=== PATIENT | female | born 1960 | race Two or more races ===

== ENCOUNTER 2018-06-22 09:07 | Outpatient (CLI) | payer OTHER | END 2018-06-22 09:12 | disposition home or self-care (01) | LOC: RX STUDY 09:07 | DX: R13.11 Dysphagia, oral phase (principal); J45.30 Mild persistent asthma, uncomplicated ==

== ENCOUNTER 2019-10-26 10:41 | Outpatient (CLI) | payer OTHER | END 2019-10-26 10:45 | disposition home or self-care (01) | LOC: TOM 10:41 | DX: J45.31 Mild persistent asthma with (acute) exacerbation (principal); R91.1 Solitary pulmonary nodule; K21.9 Gastro-esophageal reflux disease without esophagitis; K22.0 Achalasia of cardia ==

== ENCOUNTER 2022-04-28 07:13 | Outpatient (CLI) | payer OTHER | END 2022-04-28 07:25 | disposition home or self-care (01) | LOC: TOM 07:13 | PROVIDERS: ATTEND Internal Medicine Pulmonary Disease | DX: R91.1 Solitary pulmonary nodule (principal); J45.30 Mild persistent asthma, uncomplicated; E66.01 Morbid (severe) obesity due to excess calories ==

== ENCOUNTER 2022-12-02 08:50 | Outpatient (CLI) | payer OTHER | END 2022-12-02 08:52 | disposition home or self-care (01) | LOC: RAD 08:50 | PROVIDERS: ATTEND Internal Medicine Pulmonary Disease | DX: J45.30 Mild persistent asthma, uncomplicated (principal); R06.02 Shortness of breath; E66.01 Morbid (severe) obesity due to excess calories ==

== ENCOUNTER 2023-10-19 07:01 | Outpatient (CLI) | payer OTHER | END 2023-10-19 15:34 | disposition home or self-care (01) | LOC: TOM 07:01 | PROVIDERS: ATTEND Internal Medicine Pulmonary Disease | DX: J45.30 Mild persistent asthma, uncomplicated (principal); R91.1 Solitary pulmonary nodule; E66.01 Morbid (severe) obesity due to excess calories ==

== ENCOUNTER 2024-06-29 07:00 | Inpatient (IN) | payer OTHER ==
[~2024-06-29] VITALS: Ht 152.4 cm; Wt 71.7 kg
[2024-06-29] MEDS ORDERED: ZOCOR40 MG PO (08:05)
[2024-06-29] MEDS ORDERED: COZAAR25 MG PO (08:05)
[2024-06-29] MEDS ORDERED: PROTONIX40 M1 PO (08:06)
[2024-06-29] MEDS ORDERED: PROAIR RESPICL90 MCG IH (08:06)
[2024-06-29 08:34] LABS: HEMATOCRIT 44.2 % (36.0-45.00); HEMOGLOBIN 15.3 g/dL (12.0-15.00); MEAN CELL VOLUME 92.6 fL (80.00-100.00); MEAN CORPUSCULAR HEMOGLOBIN 32.1 pg (27.00-32.0); MEAN CORPUSCULAR HGB CONC 34.7 g/dl (32.0-36.0); PLATELET COUNT 275 K/uL (150-450); RED BLOOD COUNT 4.78 M/uL (4.00-6.00); RED CELL DISTRIBUTION WIDTH 14.2 % (11.5-14.5)
[2024-06-29 08:40] LABS: PH,URINE 5.5 (5.0-8.0); URINE APPEARANCE Clear; URINE BILIRRUBIN Negative (NEGATIVE); URINE BLOOD Negative; URINE COLOR Yellow; URINE GLUCOSE Negative (NEGATIVE); URINE KETONE Negative (NEGATIVE); URINE LEUKOCYTE Negative; URINE NITRATE Negative; URINE PROTEIN Negative (NEGATIVE); URINE UROBILINOGEN 0.2 E.U./dl
[2024-06-29 08:49] LABS: URINE BACTERIA 11.3 uL (0.0-1933); URINE EPITHELIAL CELLS 2.4 uL (0.0-38.8); URINE RBC 2.1 uL (0.0-20.8); URINE WBC 2.9 uL (0.0-23.2)
[2024-06-29 09:08] LABS: INR 0.97; PARTIAL THROMBOPLASTIN TIME 31.3 SECONDS (22.0-34.0); PROTHROMBIN TIME 10.6 SECONDS (9.0-11.5)
[2024-06-29 09:10] LABS: URINE CAST 0.15 uL (0.0-1.40)
[2024-06-29 09:22] LABS: BILIRUBIN TOTAL 0.39 mg/dL (0.3-1.2); CALCIUM 9.1 mg/dL (8.5-10.1); CREATININE SERUM 0.59 mg/dL (0.55-1.02); GFR 102.29; GLOBULINA 3.8 G/DL (2.4-3.5); POTASSIUM 4.63 mEq/L (3.5-5.1); TOTAL PROTEIN 7.8 gm/dL (6.4-8.2)
[2024-06-29 11:57] LABS: RH NEGATIVE
[2024-07-04] MEDS ORDERED: FAMOTIDINE20 MG (07:44)
[2024-07-04] MEDS ORDERED: ARNUITY ELLIP100 MCG (07:44)
[2024-07-04] MEDS ORDERED: BUPIVACAINE HCL 30 ML VIAL IJ ONE (08:30)
[2024-07-04] MEDS ORDERED: LIDOCAINE HCL 1%/EPINEPHRINE 20ML VIAL IJ ONE (08:30)
[2024-07-04] MEDS ORDERED: CEFAZOLIN SODIUM 1,000 MG VIAL IV ONE (08:30)
[2024-07-04] MEDS ORDERED: TRANEXAMIC ACID 100MG/1ML (1000MG) AMPUL IV ONE ×2 (08:30)
[2024-07-04] MEDS ORDERED: KETOROLAC TROMETHAMINE 60 MG VIAL IM ONE (08:30)
[2024-07-04] MEDS ORDERED: MORPHINE SULFATE 4 MG/ML CARTRIDGE IV ONE (08:45)
[2024-07-04] MEDS ORDERED: POLYMYXIN B SULFATE 500,000 U VIAL IR ONE (08:45)
[2024-07-04] MEDS ORDERED: MORPHINE SULFATE 4 MG/ML CARTRIDGE IV PRN (10:00)
[2024-07-04] MEDS ORDERED: MORPHINE SULFATE 2 MG/ML CARTRIDGE IV NR (10:00)
[2024-07-04] MEDS ORDERED: ONDANSETRON HCL 2 MG/ML VIAL IV PRN (10:00)
[2024-07-04] MEDS ORDERED: SODIUM CHLORIDE 0.45 % 1,000 ML IV SCH (10:00)
[2024-07-04] MEDS ORDERED: CEFAZOLIN SODIUM 1,000 MG VIAL IV SCH (12:00)
[2024-07-04 12:05] LABS: HEMATOCRIT 41.9 % (36.0-45.00); HEMOGLOBIN 14.5 g/dL (12.0-15.00); RED BLOOD COUNT 4.43 M/uL (4.00-6.00)
[2024-07-04 14:53] VITALS: BP 127/84; O2SAT 91
[2024-07-04] MEDS ORDERED: INSULIN LISPRO 1,000 UNIT/10 ML UNITS SUBCUTANEO PRN (15:00)
[2024-07-04] MEDS ORDERED: DEXTROSE 50 % IN WATER 0.5 G/ML DISP.SYRIN IV PRN (15:00)
[2024-07-04] MEDS ORDERED: SIMVASTATIN 40 MG TABLET PO SCH (17:00)
[2024-07-04 18:08] VITALS: BP 141/67; O2SAT 99
[2024-07-04] MEDS ORDERED: CELECOXIB 200 MG CAPSULE PO SCH (21:00)
[2024-07-04] MEDS ORDERED: GENTAMICIN SULFATE 40 MG/ML VIAL IV SCH (21:00)
[2024-07-04 23:03] VITALS: BP 136/74; O2SAT 98
[2024-07-05] VITALS: BP 136/71; O2SAT 99
[2024-07-05 06:15] LABS: HEMATOCRIT 35.5 % (36.0-45.00); HEMOGLOBIN 12.4 g/dL (12.0-15.00); MEAN CELL VOLUME 91.6 fL (80.00-100.00); MEAN CORPUSCULAR HEMOGLOBIN 31.9 pg (27.00-32.0); MEAN CORPUSCULAR HGB CONC 34.8 g/dl (32.0-36.0); PLATELET COUNT 184 K/uL (150-450); RED BLOOD COUNT 3.88 M/uL (4.00-6.00); RED CELL DISTRIBUTION WIDTH 14.2 % (11.5-14.5)
[2024-07-05] MEDS ORDERED: ACETAMINOPHEN WITH CODEINE 1 UDTAB TABLET PO PRN (07:45)
[2024-07-05 08:00] VITALS: BP 139/68; O2SAT 99
[2024-07-05] MEDS ORDERED: LOSARTAN POTASSIUM 25 MG TABLET PO SCH (09:00)
[2024-07-05] MEDS ORDERED: IRON FUM,PS/FOLIC/BCOMP,C NO.9 1 CAP CAPSULE PO SCH (09:00)
[2024-07-05] MEDS ORDERED: SENNA/DOCUSATE SODIUM 1 TAB TABLET PO SCH (09:00)
[2024-07-05] MEDS ORDERED: BACITRACIN 28.35 GM OINT.TUBE TOP SCH (09:00)
[2024-07-05] MEDS ORDERED: ALBUTEROL SULFATE 8.5 GM HFA.AER.AD IH SCH (09:00)
[2024-07-05] MEDS ORDERED: PANTOPRAZOLE SODIUM 40 MG TABLET.DR PO SCH (09:00)
[2024-07-05] MEDS ORDERED: RIVAROXABAN 10 MG TAB PO SCH (09:00)
[2024-07-05 11:47] LABS: ALBUMIN 3.2 gm/dL (3.4-5.0); BILIRUBIN TOTAL 0.78 mg/dL (0.3-1.2); CALCIUM 8.3 mg/dL (8.5-10.1); CREATININE SERUM 0.63 mg/dL (0.55-1.02); GFR 94.84; GLOBULINA 2.9 G/DL (2.4-3.5); POTASSIUM 3.89 mEq/L (3.5-5.1); TOTAL PROTEIN 6.1 gm/dL (6.4-8.2)
[2024-07-05 16:00] VITALS: BP 155/76; O2SAT 97
[2024-07-06 00:35] VITALS: BP 137/70; O2SAT 97
[2024-07-06] MEDS ORDERED: Septra Ds Tablet PO (06:30)
[2024-07-06] MEDS ORDERED: XARELTO10 MG PO (06:31)
[2024-07-06] MEDS ORDERED: ACETAMINOPHEN-1 EAC2 PO (06:31)
[2024-07-06] MEDS ORDERED: INTEGRA PLUS C1 EACH PO (06:31)
[2024-07-06 06:39] LABS: HEMOGLOBIN 10.7 g/dL (12.0-15.00); MEAN CORPUSCULAR HEMOGLOBIN 31.7 pg (27.00-32.0); MEAN CORPUSCULAR HGB CONC 34.4 g/dl (32.0-36.0); PLATELET COUNT 168 K/uL (150-450); RED BLOOD COUNT 3.37 M/uL (4.00-6.00); RED CELL DISTRIBUTION WIDTH 14.2 % (11.5-14.5)
[2024-07-06 08:30] VITALS: BP 126/78; O2SAT 99
[2024-07-06] MEDS ORDERED: SULFAMETHOXAZOLE/TRIMETHOPRIM DS 1 TAB PO SCH (09:00)
== END 2024-07-06 15:02 | DRG 470 ==
LOC: O/R 07-04 05:31 → SURH 07-04 07:00 → O/R 07-04 09:43 → SURG 07-04 11:56 → SURH 07-04 20:00 → O/R 07-05 12:53 → SURG 07-05 12:54
PROVIDERS: ADMIT Orthopaedic Surgery Sports Medicine; ATTEND Orthopaedic Surgery Sports Medicine
PROC: 0SRC0J9 Replacement of Right Knee Joint with Synthetic Substitute, Cemented, Open Approach (ICD-10-PCS; principal; 2024-07-04 20:00)
DX: M17.11 Unilateral primary osteoarthritis, right knee (principal); I10 Essential (primary) hypertension; E11.9 Type 2 diabetes mellitus without complications

== ENCOUNTER 2024-07-28 17:31 | Emergency (ER) | payer OTHER ==
[~2024-07-28] VITALS: Ht 157.5 cm; Wt 81.6 kg
[~2024-07-28 17:31] MED LIST: ACETAMINOPHEN-1 EAC2 PO; ARNUITY ELLIP100 MCG; COZAAR25 MG PO; FAMOTIDINE20 MG; INTEGRA PLUS C1 EACH PO; PROAIR RESPICL90 MCG IH; PROTONIX40 M1 PO; Septra Ds Tablet PO; XARELTO10 MG PO; ZOCOR40 MG PO
[2024-07-28 17:38] VITALS: BP 138/67; O2SAT 99
[2024-07-28] MEDS ORDERED: 0.9 % SODIUM CHLORIDE 1,000 ML IV STA (18:40)
[2024-07-28] MEDS ORDERED: ENOXAPARIN SODIUM 80 MG/0.8 ML SYRINGE SUBCUTANEO ONE (18:45)
[2024-07-28] MEDS ORDERED: TRAMADOL HCL 50 MG TABLET PO ONE (18:45)
[2024-07-28 19:41] LABS: HEMATOCRIT 37.1 % (36.0-45.00); HEMOGLOBIN 12.7 g/dL (12.0-15.00); MEAN CELL VOLUME 94.8 fL (80.00-100.00); MEAN CORPUSCULAR HEMOGLOBIN 32.4 pg (27.00-32.0); MEAN CORPUSCULAR HGB CONC 34.2 g/dl (32.0-36.0); PLATELET COUNT 364 K/uL (150-450); RED BLOOD COUNT 3.92 M/uL (4.00-6.00); RED CELL DISTRIBUTION WIDTH 16.2 % (11.5-14.5)
[2024-07-28 20:07] LABS: INR 1.06; PARTIAL THROMBOPLASTIN TIME 30.1 SECONDS (22.0-34.0); PROTHROMBIN TIME 11.5 SECONDS (9.0-11.5)
[2024-07-28 20:14] LABS: ALBUMIN 3.6 gm/dL (3.4-5.0); BILIRUBIN TOTAL 0.44 mg/dL (0.3-1.2); CALCIUM 9.1 mg/dL (8.5-10.1); CREATININE SERUM 0.7 mg/dL (0.55-1.02); GFR 83.98; GLOBULINA 3.6 G/DL (2.4-3.5); POTASSIUM 4.22 mEq/L (3.5-5.1); TOTAL PROTEIN 7.2 gm/dL (6.4-8.2)
[2024-07-28] MEDS ORDERED: APIXABAN 5 MG TABLET PO ONE (22:30)
== END 2024-07-28 23:30 | disposition home or self-care (01) ==
LOC: ER 17:33
PROVIDERS: Emergency Medicine
DX: I82.409 Acute embolism and thrombosis of unspecified deep veins of unspecified lower extremity (principal); I47.10 Supraventricular tachycardia, unspecified; R00.2 Palpitations; I10 Essential (primary) hypertension; Z91.041 Radiographic dye allergy status
CPT/HCPCS: 36415; 93005; 96365; 96366; 99282; J7030